=== PATIENT | female | born 1990 | race Caucasian/White ===

== ENCOUNTER 2021-01-05 09:42 | Inpatient (IN) ==
[2021-01-05] MEDS ORDERED: Naloxone 0.4 MG/ML INJ IVP PRN (09:54)
[2021-01-05] MEDS ORDERED: Ondansetron 4 MG/2 ML VIAL IVP PRN (09:54)
[2021-01-05] MEDS ORDERED: *HR* Nalbuphine 10 MG/ML AMPUL IV PRN (09:54)
[2021-01-05] MEDS ORDERED: Azithromycin 500 MG in 0.9 % Sodium Chloride 250 ML IVPB PRN (09:54)
[2021-01-05] MEDS ORDERED: Metoclopramide 10 MG/2 ML VIAL IVP PRN (09:54)
[2021-01-05] MEDS ORDERED: Lidocaine 1% 20 ML MDV ID PRN (09:54)
[2021-01-05] MEDS ORDERED: Famotidine 20 MG/2 ML VIAL IVP PRN (09:54)
[2021-01-05] MEDS ORDERED: Oxytocin 20 units/ LR 1000 mL 20 UNIT/1,000 ML BAG IVC SCH (10:00)
[2021-01-05 10:27] LABS: Basophils % 0.2 %; Eosinophils # 0.1 K/mcL (0.0-0.6); Eosinophils % 0.9 %; Hematocrit 36.3 % (35.3-44.9); Hemoglobin 11.9 g/dL (11.5-15.4); Immature Granulocytes % 1.1 % (0-4); Lymphocytes # 1.7 K/mcL (0.6-4.6); Mean Corpuscular HGB Conc 32.8 g/dL (31.6-35.5); Mean Corpuscular Hemoglobin 27.5 pg (28.0-33.3); Mean Platelet Volume 10.7 fL (9.4-12.4); Monocytes # 0.5 K/mcL (0.0-1.3); Monocytes % 6.2 %; Neutrophils # 6.4 K/mcL (1.6-8.9); Platelet Count 209 K/mcL (140-400); Red Blood Count 4.32 M/mcL (3.82-4.97); Red Cell Distribution Width 13.2 % (11.5-14.5); Segmented Neutrophils % 72.6 %; White Blood Count 8.8 K/mcL (4.3-11.1)
[2021-01-05] MEDS ORDERED: EPHEDrine 50 MG/ML VIAL IVP PRN (10:47)
[2021-01-05] MEDS ORDERED: Epidural Premix (fent/bupiv) 110 ML EP SCH (11:00)
[2021-01-05] MEDS: Ringers Solution, Lactated 1,000 ML IVC SCH ×4 (11:01→23:54)
[2021-01-05 11:05] LABS: Influenza A PCR Negative (Negative); Influenza B PCR Negative (Negative); Resp. Syncytial Virus PCR Negative (Negative)
[2021-01-05 11:07] LABS: SARS-CoV-2 by PCR (In House) Negative (Negative)
[2021-01-05 11:10] LABS: Amphetamine Screen,Urine Negative ng/mL (Cutoff=1000); Barbiturate Screen,Urine Negative ng/mL (Cutoff=200); Benzodiazepines Screen,Urine Negative ng/mL (Cutoff=200); Cannabinoid Screen,Urine Negative ng/mL (Cutoff = 50); Cocaine Screen,Urine Negative ng/mL (Cutoff= 300); Opiate Screen,Urine Negative ng/mL (Cutoff=300); Phencyclidine Screen,Urine Negative ng/mL (Cutoff=25)
[2021-01-06] MEDS ORDERED: Lidocaine/EPI 1:200k 2% PF 20 ML VIAL ONE (00:38)
[2021-01-06] MEDS ORDERED: Ondansetron 4 MG/2 ML VIAL ONE (00:38)
[2021-01-06] MEDS ORDERED: CeFAZolin 2,000 MG/120 ML BAG IVPB ONE (00:39)
[2021-01-06] MEDS ORDERED: Acetaminophen IV 1,000 MG/100 ML BAG IVPB ONE (00:48)
[2021-01-06] MEDS ORDERED: Ketorolac 30 MG/ML VIAL ONE (00:48)
[2021-01-06] MEDS ORDERED: *HR* FentaNYL (PF) 100 MCG/2 ML VIAL ONE (01:14)
[2021-01-06] MEDS ORDERED: *HR* Morphine Sulfate/PF 10 MG/10 ML AMPUL ONE (01:14)
[2021-01-06] MEDS ORDERED: Oxytocin 20 units/ LR 1000 mL 20 UNIT/1,000 ML BAG IVC SCH ×2 (05:01)
[2021-01-06] MEDS ORDERED: Metoclopramide 10 MG/2 ML VIAL IVP PRN (05:01)
[2021-01-06] MEDS ORDERED: Ondansetron 4 MG/2 ML VIAL IVP PRN (05:01)
[2021-01-06] MEDS: Acetaminophen 325 MG TABLET PO SCH ×3 (05:29→21:30)
[2021-01-06] MEDS: Ibuprofen 600 MG TABLET PO SCH ×3 (05:30→21:30)
[2021-01-06] MEDS: cephALEXin 500 MG CAPSULE PO SCH ×3 (07:52→21:30)
[2021-01-06] MEDS: Prenatal Vit/FA 1 EACH TABLET PO SCH (07:52)
[2021-01-06] MEDS: metroNIDAZOLE 500 MG TABLET PO SCH ×3 (07:53→21:30)
[2021-01-06] MEDS ORDERED: Ringers Solution, Lactated 1,000 ML ONE (13:27)
[2021-01-06] MEDS: Simethicone 80 MG TAB.CHEW PO PRN (17:00)
[2021-01-07] MEDS: Acetaminophen 325 MG TABLET PO SCH ×2 (04:06→12:11)
[2021-01-07] MEDS: Ibuprofen 600 MG TABLET PO SCH ×2 (04:06→12:10)
[2021-01-07 07:34] VITALS: BP 112/69; PULSE 69; TEMP 98.1; O2SAT 99
[2021-01-07] MEDS: Simethicone 80 MG TAB.CHEW PO PRN (09:01)
[2021-01-07] MEDS: cephALEXin 500 MG CAPSULE PO SCH (09:02)
[2021-01-07] MEDS: metroNIDAZOLE 500 MG TABLET PO SCH (09:02)
[2021-01-07] MEDS: Prenatal Vit/FA 1 EACH TABLET PO SCH (09:02)
[2021-01-07] MEDS: *HR* OxyCODONE Immed Rel 5 MG TABLET PO PRN ×2 (09:03→14:32)
== END 2021-01-07 16:30 | disposition home or self-care (01) | DRG 540 ==
LOC: 1NENULAB 09:42 → 1NENUOBS 01-06 05:00
PROVIDERS: ADMIT Registered Nurse; ATTEND Registered Nurse